=== PATIENT | male | born 1990 | race Caucasian/White ===

== ENCOUNTER 2024-02-04 14:51 | Emergency (ER) | payer MEDICAID ==
[~2024-02-04] VITALS: Ht 188 cm; Wt 102.1 kg
[2024-02-04 14:58] VITALS: BP 155/109; PULSE 122; RESP 20; TEMP 97.8; O2SAT 100
[2024-02-04 15:47] LABS: BASOPHILS # (AUTO) 0.1 K/uL (0.00-0.22); BASOPHILS % (AUTO) 0.9 % (0.0-2.0); EOSINOPHILS # (AUTO) 0.2 K/uL (0-0.4); EOSINOPHILS % (AUTO) 1.8 % (0.0-4.0); HEMATOCRIT 50.8 % (36-52); HEMOGLOBIN 17.3 g/dL (12.0-18.0); LYMPHOCYTES # (AUTO) 2.4 K/uL (2.0-11.5); LYMPHOCYTES % (AUTO) 27.3 % (20.5-51.1); MEAN CORPUSCULAR HEMOGLOBIN 29 pg (27-31); MEAN CORPUSCULAR HGB CONC 34 g/dL (33-37); MEAN CORPUSCULAR VOLUME 86.1 fL (80-94); MONOCYTES # (AUTO) 0.5 K/uL (0.8-1.0); MONOCYTES % (AUTO) 6.1 % (1.7-9.3); NEUTROPHILS # (AUTO) 5.6 K/uL (1.8-7.7); NEUTROPHILS % (AUTO) 63.9 % (42.2-75.2); PLATELET COUNT (AUTO) 237 K/uL (140-450); RED BLOOD CELL COUNT(AUTO) 5.89 MIL/uL (4.20-6.10); WHITE BLOOD COUNT (AUTO) 8.7 K/uL (4.8-10.8)
[2024-02-04 16:06] LABS: INR 0.94 (0.8-1.2); PARTIAL THROMBOPLASTIN TIME 25.6 secs (22-35.6); PROTHROMBIN TIME 9.9 secs (10.8-13.4)
[2024-02-04] MEDS: NACL 0.9% 1,000 ML IV ONE (16:06)
[2024-02-04 16:14] LABS: D-DIMER < 100 ng/ml (0-400)
[2024-02-04] MEDS: LORazepam 2 MG/ML VIAL IVP ONE (16:16)
[2024-02-04 16:21] LABS: ALANINE AMINOTRANSFERASE 49 U/L (12-78); ALBUMIN 4.6 g/dL (3.4-5.0); ALKALINE PHOSPHATASE 97 U/L (50-136); ASPARTATE AMINOTRANSFERASE 27 U/L (15-37); BILIRUBIN,DIRECT 0.1 mg/dL (0.0-0.3); TOTAL BILIRUBIN 0.6 mg/dL (0.0-1.0); TOTAL PROTEIN, SERUM 8.5 g/dL (6.4-8.2)
[2024-02-04 16:26] LABS: ANION GAP 14.5 (8-16); CALCIUM 10.1 mg/dL (8.5-10.1); CARBON DIOXIDE 29.9 mmol/L (21-32); CREATININE 1.1 mg/dL (0.6-1.3); POTASSIUM 3.4 mmol/L (3.5-5.1)
[2024-02-04] MEDS ORDERED: POTASSIUM CHLORIDE 10 MEQ TABER PO ONE ×2 (18:21→18:52)
[2024-02-04] MEDS: POTASSIUM CHLORIDE 10 MEQ TABER PO ONE (18:26)
[2024-02-04 19:39] VITALS: TEMP 98.3
[2024-02-04 20:15] VITALS: BP 134/81; PULSE 117; RESP 14; O2SAT 99
== END 2024-02-04 20:15 | disposition home or self-care (01) ==
LOC: MED 14:51
DX: R55 Syncope and collapse (principal); F15.10 Other stimulant abuse, uncomplicated; Z86.19 Personal history of other infectious and parasitic diseases; R00.0 Tachycardia, unspecified; F41.9 Anxiety disorder, unspecified; R25.1 Tremor, unspecified; R00.2 Palpitations; R14.0 Abdominal distension (gaseous)
CPT/HCPCS: 36415; 71045; 80048; 80076; 82140; 83880; 84484; 85025; 85379; 85610; 85730; 93005; 96361; 96374; 99285; J2060; J7030